=== PATIENT | male | born 1965 | race Native Hawaiian/Other Pacific Islander ===

== ENCOUNTER 2021-02-11 08:20 | Outpatient (CLI) | payer OTHER | END 2021-02-11 16:00 | disposition home or self-care (01) | LOC: LABW 08:20 | PROVIDERS: ATTEND Nurse Practitioner Family | DX: R80.9 Proteinuria, unspecified (principal) | CPT/HCPCS: 84156 ==

== ENCOUNTER 2023-03-12 12:16 | Emergency (ER) | payer OTHER ==
[~2023-03-12] VITALS: Ht 195.6 cm; Wt 124.7 kg
[2023-03-12 12:16] VITALS: TEMP 98.1
[2023-03-12 13:02] LABS: PLATELET COUNT 757 K/uL (142-355)
[2023-03-12 13:03] LABS: POTASSIUM 4.9 mmol/L (3.6-5.2)
[2023-03-12 14:12] LABS: PLATELET COUNT 558 K/uL (142-355)
[2023-03-12 15:14] VITALS: BP 102/53
== END 2023-03-12 15:14 | disposition short-term general hospital (02) ==
LOC: ED 12:16
PROVIDERS: Family Medicine
DX: N17.9 Acute kidney failure, unspecified (principal); K92.2 Gastrointestinal hemorrhage, unspecified; E86.0 Dehydration; D72.829 Elevated white blood cell count, unspecified; R55 Syncope and collapse
CPT/HCPCS: 36430; 80053; 82272; 82550; 83605; 83690; 84484; 85027; 86850; 86900; 86901; 86922; 87040; 93005; 96361; 96365; 96366; 96375; 99285; J0696; J3490; P9016